=== PATIENT | female | born 1995 | race African-American/Black ===

== ENCOUNTER 2017-04-05 19:29 | Emergency (ER) | payer MEDICAID ==
[~2017-04-05] VITALS: Ht 154.9 cm; Wt 43.0 kg
[2017-04-05 22:02] VITALS: BP 112/75
== END 2017-04-05 23:07 | disposition home or self-care (01) ==
LOC: ER 19:29
DX: A56.8 Sexually transmitted chlamydial infection of other sites (principal)
CPT/HCPCS: 99283